=== PATIENT | male | born 1970 ===

== ENCOUNTER 2023-07-08 06:40 | Day surgery (SDC) | payer OTHER ==
[~2023-07-08] VITALS: Ht 177.8 cm; Wt 113.4 kg
[~2023-07-08 06:40] MED LIST: CLARIT PO
[2023-07-08] MEDS ORDERED: OXYC1TAB9 PO (12:38)
== END 2023-07-08 14:20 | disposition home or self-care (01) ==
LOC: CIR.AMB 06:40
PROVIDERS: ATTEND Surgery
DX: K60.3 Anal fistula (principal); K62.5 Hemorrhage of anus and rectum; K62.89 Other specified diseases of anus and rectum; Z20.822 Contact with and (suspected) exposure to COVID-19